=== PATIENT | male | born 2000 | race Caucasian/White ===

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

== ENCOUNTER 2019-03-19 22:52 | Emergency (ER) | payer SELFPAY ==
[2019-03-20] MEDS: HYDROCODONE/APAP (10/325) TAB PO (00:20)
[2019-03-20] MEDS: DIPHTH/TET/ACEL PERTUSS (ADULT) 0.5 ML VIAL IM* (00:20)
== END 2019-03-20 02:11 | disposition home or self-care (01) ==
LOC: FTE 03-20 02:11
DX: S51.832A Puncture wound without foreign body of left forearm, initial encounter (principal); X99.8XXA Assault by other sharp object, initial encounter; Z23 Encounter for immunization
CPT/HCPCS: 73080; 73080-LT; 73090; 90471; 90715; 99283-25